=== PATIENT | male | born 1990 | race African-American/Black ===

== ENCOUNTER 2019-04-04 15:53 | Emergency (ER) | payer SELFPAY ==
[~2019-04-04] VITALS: Ht 177.8 cm; Wt 72.7 kg
[2019-04-04 16:18] VITALS: Ht 177.8 cm; Wt 72.7 kg
[2019-04-04] MEDS ORDERED: LACTATED RINGER'S 1,000 ML IV STA (16:22)
[2019-04-04] MEDS ORDERED: ONDANSETRON 4 MG INJ IV STA (16:22)
--- NOTE | 2019-04-04 16:37 | ERD ---
ER Documentation Chief Complaint Chief Complaint BIB RA from street: heroin OD. HPI 28-year-old man with history of heroin abuse brought in by EMS off the streets for an overdose, they administered naloxone 2 mg IV at the scene with improvement in mental status although in route he became lethargic again. He has had no seizure activity, no vomiting or loss of bowel or bladder control, no complaints of chest pain or shortness of breath, no complaints of suicidal ideation. HPI was limited although he was transported here without further complications. ROS All systems reviewed and are negative except as per history of present illness. Medications Home Meds Unable to Obtain Active Prescriptions or Reported Meds Allergies Allergies: Coded Allergies: Unknown: Unable to obtain (Unverified , 04/04/19) PMhx/Soc Medical and Surgical Hx: Unable to obtain Hx Alcohol Use: Yes (Patron today) Hx Substance Use: Yes (heroin today) Hx Tobacco Use: No Smoking Status: Unknown if ever smoked FmHx Family History: No diabetes Physical Exam Vitals Vital Signs Date Temp Pulse Resp B/P (MAP) Pulse Ox O2 O2 Flow FiO2 Time Delivery Rate 04/04/19 98.0 80 16 112/79 100 Room Air 20:46 (90) 04/04/19 73 12 98/65 (76) 100 Room Air 18:37 04/04/19 97.9 78 13 115/66 100 16:18 (82) 04/04/19 78 13 115/66 100 Room Air 16:04 (82) Physical Exam GENERAL: Well-developed, well-nourished, well-hydrated, appears intoxicated, afebrile HEENT: Moist mucous membranes, pink conjunctiva, no cervical spine tenderness or step-off deformities, no goiter, no jaundice or icterus NEURO: Patient nonverbal, eyes closed, lethargic, moving all extremities, pupils constricted bilaterally CARDIAC: Regular rate and rhythm, no murmurs rubs or gallops LUNGS: Clear bilaterally no wheezing crackles or stridor SKIN: Warm and dry to touch, no abrasions, contusions, or hematomas, no lacerations, no ecchymosis, no target lesions, and without ulcers EXTREMITIES: No clubbing cyanosis or edema, calves are bilaterally symmetrical, no Homans sign, no popliteal cord sign. Distal pulses equal and bilateral PSYCH: Normal affect without agitation or irritability Result Diagram: 04/04/19 1635 04/04/19 1635 Results 24 hrs Laboratory Tests Test 04/04/19 16:35 White Blood Count 7.8 10^3/ul Red Blood Count 5.07 10^6/ul Hemoglobin 14.8 g/dl Hematocrit 44.6 % Mean Corpuscular Volume 88.0 fl Mean Corpuscular Hemoglobin 29.2 pg Mean Corpuscular Hemoglobin Concent 33.2 g/dl Red Cell Distribution Width 12.2 % Platelet Count 224 10^3/UL Mean Platelet Volume 9.0 fl Immature Granulocytes % 0.300 % Neutrophils % 51.0 % Lymphocytes % 38.7 % Monocytes % 8.4 % Eosinophils % 1.0 % Basophils % 0.6 % Nucleated Red Blood Cells % 0.0 /100WBC Immature Granulocytes # 0.020 10^3/ul Neutrophils # 4.0 10^3/ul Lymphocytes # 3.0 10^3/ul Monocytes # 0.7 10^3/ul Eosinophils # 0.1 10^3/ul Basophils # 0.1 10^3/ul Nucleated Red Blood Cells # 0.0 10^3/ul Sodium Level 147 mmol/L Potassium Level 3.7 mmol/L Chloride Level 109 mmol/L Carbon Dioxide Level 23 mmol/L Anion Gap 15 Blood Urea Nitrogen 10 mg/dl Creatinine 0.92 mg/dl Est Glomerular Filtrat Rate mL/min > 60 mL/min Glucose Level 128 mg/dl Calcium Level 8.5 mg/dl Total Bilirubin 0.3 mg/dl Direct Bilirubin 0.00 mg/dl Indirect Bilirubin 0.3 mg/dl Aspartate Amino Transf (AST/SGOT) 35 IU/L Alanine Aminotransferase (ALT/SGPT) 32 IU/L Alkaline Phosphatase 60 IU/L Troponin I < 0.012 ng/ml Total Protein 7.8 g/dl Albumin 4.4 g/dl Globulin 3.40 g/dl Albumin/Globulin Ratio 1.29 Lipase 60 U/L Ethyl Alcohol Level 501.0 mg/dl Current Medications Medications Dose Sig/Erin Start Time Status Last (Trade) Ordered Route PRN Stop Time Admin Dose Reason Admin Lactated 1,000 ml @ Q1H STAT 04/04/19 DC 04/04/19 Ringer's 1,000 mls/hr IV 16:22 16:38 04/04/19 17:21 Ondansetron 4 mg ONCE STAT 04/04/19 DC 04/04/19 HCl (Zofran IV 16:22 16:37 Inj) 04/04/19 16:23 Procedures/MDM IV line was established patient was placed on youth nutritional monitor rhythm strip rev ealed a sinus rhythm at about 80 bpm with upright P and T waves. Patient was afebrile Chest X-ray 1V Interpreted by me: Soft Tissue: No acute abnormalities Bones: No acute abnormalities Mediastinum/Cardiac Silhouette/Lungs: No acute abnormalities I ordered 1 L LR IV and Zofran [address] scan of the brain was negative for acute bleed mass or shift. EKG was performed, read by me revealed a normal sinus rhythm at 74 bpm, normal axis, narrow QRS complex, no concerning ST elevations or depressions noted Ethanol level was elevated at 501. CBC and electrolytes were unremarkable, liver function tests were normal, troponin was negative Observation Note: Time: 5 hours Family Hx: No Hypertension Evaluation: Multiple exams showed improving symptoms and no evidence of worsening mental status or cardiopulmonary decompensation. Differential diagnoses considered, included but not limited to acute coronary syndrome, pulmonary embolism, aortic dissection, abdominal aortic aneurysm, sepsis, stroke, meningitis, encephalitis, pneumonia, appendicitis, cholecystitis, bowel obstruction, pyelonephritis, nephrolithiasis, cystitis, as well as metabolic, hematologic, and electrolyte abnormalities. As well as abscess, cellulitis, fractures, and dislocations. Patient feels much better at this time, and vital signs are normal, symptoms have improved. I did give strict instructions to return to the ED if symptoms continue or worsen, patient will otherwise follow-up with primary care physician. Patient understood instructions and agreed to plan. Disclaimer: Inadvertent spelling and grammatical errors are likely due to EHR/dictation software use and do not reflect on the overall quality of patient care. Also, please note that the electronic time recorded on this note does not necessarily reflect the actual time of the patient encounter. Departure Diagnosis: Primary Impression: Heroin overdose Encounter type: initial encounter Injury intent: accidental or unintentional Qualified Codes: T40.1X1A - Poisoning by heroin, accidental (unintentional), initial encounter Additional Impressions: Acute encephalopathy Alcohol poisoning Encounter type: initial encounter Injury intent: accidental or unintentional Qualified Codes: T51.91XA - Toxic effect of unspecified alcohol, accidental (unintentional), initial encounter Condition: PEDRITO Hobbs MD Apr 04, 2019 16:37
[2019-04-04 20:46] VITALS: BP 112/79; PULSE 80; RESP 16
== END 2019-04-04 20:46 | disposition home or self-care (01) ==
LOC: E/R 15:53
DX: T40.1X1A Poisoning by heroin, accidental (unintentional), initial encounter (principal); G93.40 Encephalopathy, unspecified; R10.9 Unspecified abdominal pain; R41.82 Altered mental status, unspecified; R40.2322 Coma scale, best motor response, extension, at arrival to emergency department
CPT/HCPCS: 36415; 70450; 71045; 80053; 80307; 83690; 84484; 85025; 93005; 96361; 96374; 99285; J2405; J7120